=== PATIENT | male | born 1975 ===

== ENCOUNTER 2017-12-12 11:25 | Emergency (ER) | payer MEDICARE, OTHER ==
[2017-12-12 11:52] VITALS: BMI 33.5
[2017-12-12 12:11] LABS: BASO % 0.4 % (0.0-2.0); EOS # 0.1 K/uL (0.0-0.7); EOS % 1.5 % (0.0-4.0); HEMOGLOBIN 15.4 g/dL (12.0-18.0); LYMPH # 1.8 K/uL (1.0-4.3); LYMPH % 30.9 % (20.0-40.0); MEAN CELL VOLUME 85.4 fL (80.0-94.0); MEAN CORPUSCULAR HEMOGLOBIN 29.4 pg (27.0-31.0); MEAN CORPUSCULAR HGB CONC 34.4 g/dL (33.0-37.0); MEAN PLATELET VOLUME 7.8 fL (7.2-11.7); MONO # 0.7 K/uL (0.0-0.8); NEUT # 3.3 K/uL (1.8-7.0); NEUT % 56.2 % (50.0-75.0); NRBC % 0.1 % (0.0-2.0); RBC 5.23 Mil/uL (4.40-5.90); RED CELL DISTRIBUTION WIDTH 15.1 % (11.5-14.5); WHITE BLOOD COUNT 5.9 K/uL (4.8-10.8)
[2017-12-12 12:22] LABS: ACETAMINOPHEN < 10.0 ug/mL (10.0-30.0); SALICYLATE < 1.0 mg/dL 1
--- NOTE | 2017-12-12 12:22 | C.PDOC ---
History Of Present Illness 42 year old male, with PMHx of depression, presents to ED with complaints of feeling angry and stressed for the past few days. Pt states, "my nerves are acting up" for the past week. Note, pt refused to sit down during triage. Denies fever, or any other complaints. Time Seen by Provider: 12/12/17 11:34 Chief Complaint (Nursing): Psychiatric Evaluation History Per: Patient History/Exam Limitations: no limitations Onset/Duration Of Symptoms: Days Current Symptoms Are (Timing): Still Present Suicide/Self Injury Attempted (Context): None Modifying Factor(s): None Severity: None Pain Scale Rating Of: 0 Associated Symptoms: Anger. denies: Suicidal Thoughts, Suicidal Plan Involuntary Hold By: None Recent travel outside of the [place]: No Additional History Per: Patient Past Medical History Reviewed: Historical Data, Nursing Documentation, Vital Signs Vital Signs: Last Vital Signs Temp 98.7 F 12/12/17 14:49 Pulse 88 12/12/17 14:49 Resp 20 12/12/17 14:49 BP 124/78 12/12/17 14:49 Pulse Ox 98 12/12/17 14:49 - Medical History PMH: Anxiety, Asthma, Bipolar Disorder, Depression, Paranoia, Post Traumatic Stress Disorder Denies: Diabetes, Hepatitis, HIV, HTN, Chronic Kidney Disease, Seizures, Sexually Transmitted Disease - [facility] Procedures ESOPHAGOGASTRODUODENOSCOPY [EGD] W/CLOSED BIOPSY (01/26/14) Family History: States: Unknown Family Hx - Social History Hx Tobacco Use: No Hx Alcohol Use: No Hx Substance Use: No - Immunization History Hx Tetanus Toxoid Vaccination: No Hx Influenza Vaccination: No Hx Pneumococcal Vaccination: No Review Of Systems Except As Marked, All Systems Reviewed And Found Negative. Constitutional: Negative for: Fever, Chills Cardiovascular: Negative for: Chest Pain, Palpitations Respiratory: Negative for: Cough, Shortness of Breath Psych: Positive for: Other (angry, stressed) Physical Exam - Physical Exam Appears: Non-toxic, Agitated Skin: Normal Color, Warm, Dry Head: Atraumatic, Normacephalic Eye(s): bilateral: Normal Inspection Oral Mucosa: Moist Neck: Supple Cardiovascular: Rhythm Regular Respiratory: Normal Breath Sounds, No Rales, No Rhonchi, No Wheezing Extremity: Bilateral: Atraumatic, Normal ROM Neurological/Psych: Oriented x3, Normal Speech ED Course And Treatment - Laboratory Results Result Diagrams: 12/12/17 11:54 12/12/17 12:02 ECG: Interpreted By Me, Viewed By Me ECG Rhythm: Sinus Rhythm ECG Interpretation: No Acute Changes Rate From EC (bpm) O2 Sat by Pulse Oximetry: 99 (RA) Pulse Ox Interpretation: Normal Medical Decision Making Medical Decision Making: Plan: Blood work UA EKG CXR Pt is medically cleared. cleared by dwayne for dc. advise outpt fu with dr diaz. appt given Disposition - Disposition Disposition: HOME/ ROUTINE Disposition Time: 15:30 Condition: STABLE Additional Instructions: please follow up with your scheduled appointment with emily. return to er with worsening symptoms or concerns. Instructions: Depression (ED), Anxiety (ED), Suicide Prevention for Adults (DC) Forms: [employer] Connect (Maori) - Clinical Impression Clinical Impression: Anxiety - Scribe Statement The provider has reviewed the documentation as recorded by the Scribe Rios Charlton All medical record entries made by the Scribe were at my direction and personally dictated by me. I have reviewed the chart and agree that the record accurately reflects my personal performance of the history, physical exam, medical decision making, and the department course for this patient. I have also personally directed, reviewed, and agree with the discharge instructions and disposition.
[2017-12-12 12:25] LABS: ALB/GLOB RATIO 1.3 (1.0-2.1); ALBUMIN 4.1 g/dL (3.5-5.0); ALT/SGPT 45 U/L (21-72); AST/SGOT 34 U/L (17-59); BLOOD UREA NITROGEN 12 mg/dL (9-20); CALCIUM 7.9 mg/dl (8.6-10.4); GFR AFRICAN-AMERICAN > 60; GFR NON-AFRICAN AMERICAN > 60
--- NOTE | 2017-12-12 12:31 | RAD ---
PROCEDURE: CHEST RADIOGRAPH, 1 VIEW HISTORY: Detox/Psy COMPARISON: 12/01/2016. FINDINGS: LUNGS: The lungs are well inflated and clear. PLEURA: No pneumothorax or pleural fluid seen. CARDIOVASCULAR: Normal. OSSEOUS STRUCTURES: No significant abnormalities. VISUALIZED UPPER ABDOMEN: Normal. OTHER FINDINGS: None. IMPRESSION: No active pulmonary disease.
[2017-12-12 13:13] LABS: URINE BILIRUBIN NEGATIVE (NEGATIVE); URINE BLOOD NEGATIVE (NEGATIVE); URINE CLARITY Clear (Clear); URINE COLOR Yellow (YELLOW); URINE GLUCOSE (UA) NORMAL (Normal); URINE LEUKOCYTE ESTERASE NEG Leu/uL (Negative); URINE NITRATE NEGATIVE (NEGATIVE); URINE PROTEIN NEGATIVE (NEGATIVE); URINE UROBILINOGEN NORMAL mg/dL (0.2-1.0)
[2017-12-12 13:22] LABS: BARBITURATES, UR NEGATIVE (NEGATIVE); BENZODIAZEPINES, UR NEGATIVE (NEGATIVE); OPIATES, UR NEGATIVE (NEGATIVE); PHENCYCLIDINE, UR NEGATIVE (NEGATIVE)
[2017-12-12 14:49] VITALS: BP 124/78; PULSE 88; RESP 20; TEMP 98.7
[2017-12-12 15:34] VITALS: O2SAT 99
--- NOTE | 2017-12-15 09:15 | CARD ---
APPROVED REPORT EKG Measurement Heart [id number] DC 150P42 [id number] <Conclusion> Normal sinus rhythm with sinus arrhythmia Normal ECG
== END 2017-12-12 15:37 | disposition home or self-care (01) ==
LOC: C.ER 11:25
DX: F41.9 Anxiety disorder, unspecified (principal)
CPT/HCPCS: 36415; 71045; 80053; 81001; 85025; 99283; G0480

== ENCOUNTER 2018-05-20 06:02 | Emergency (ER) | payer MEDICARE, OTHER ==
[2018-05-20 06:02] VITALS: BMI 33.5
[2018-05-20] MEDS ORDERED: Albuterol-Ipratrop 3 mg / 0.5 (3 ml) UD INH STA ×3 (06:12→06:13)
[2018-05-20 06:13] VITALS: TEMP 98.2
[2018-05-20] MEDS ORDERED: Sodium Chloride 0.9% 1,000 ML IV ONE (06:13)
--- NOTE | 2018-05-20 06:14 | C.PDOC ---
History Of Present Illness <Veto Escamilla - Last Filed: 05/20/18 07:07> <Maty Romero - Last Filed: 05/20/18 09:19> 42 year old male with a Hx of asthma presents to the ER with a complaint of SOB and dry cough since yesterday. Denies fever. (Veto Escamlila Cely) History Per: Patient History/Exam Limitations: no limitations Onset/Duration Of Symptoms: Days Current Symptoms Are (Timing): Still Present Initiating Event: Other (Not known) Current Respiratory Medications: See Home Med List Associated Symptoms: denies: Fever Recent travel outside of the [place]: No <Veto Escamilla - Last Filed: 05/20/18 07:07> <Maty Romero - Last Filed: 05/20/18 09:19> Chief Complaint (Nursing): Shortness Of Breath Past Medical History Reviewed: Historical Data, Nursing Documentation, Vital Signs - Medical History PMH: Anxiety, Asthma, Bipolar Disorder, Depression, HTN, Paranoia, Post Traumatic Stress Disorder Family History: States: Unknown Family Hx - Social History Hx Tobacco Use: No Hx Alcohol Use: Yes Hx Substance Use: Yes - Immunization History Hx Tetanus Toxoid Vaccination: No Hx Influenza Vaccination: No Hx Pneumococcal Vaccination: No <Veto Escamilla - Last Filed: 05/20/18 07:07> Vital Signs: Last Vital Signs Temp 98.2 F 05/20/18 06:07 Pulse 103 H 05/20/18 07:11 Resp 17 05/20/18 07:11 BP 142/86 05/20/18 07:11 Pulse Ox 93 L 05/20/18 07:17 - [facility] Procedures ESOPHAGOGASTRODUODENOSCOPY [EGD] W/CLOSED BIOPSY (01/26/14) Review Of Systems Constitutional: Negative for: Fever, Chills ENT: Negative for: Throat Pain, Throat Swelling Cardiovascular: Negative for: Chest Pain, Palpitations Respiratory: Positive for: Cough, Shortness of Breath. Negative for: Sputum Gastrointestinal: Negative for: Nausea, Vomiting, Abdominal Pain Skin: Negative for: Rash <Veto Escamilla - Last Filed: 05/20/18 07:07> Physical Exam - Physical Exam Appears: Non-toxic, Other (Dyspneic) Skin: Normal Color, Warm, Dry Head: Atraumatic, Normacephalic Eye(s): bilateral: Normal Inspection Oral Mucosa: Moist Throat: Normal, No Other (Swelling) Neck: Normal, Supple Chest: Symmetrical, No Tenderness Cardiovascular: Rhythm Regular Respiratory: No Rales, Rhonchi (Expiratory), Wheezing (Expiratory) Gastrointestinal/Abdominal: Soft, No Tenderness Neurological/Psych: Oriented x3, Normal Speech <Veto Escamilla - Last Filed: 05/20/18 07:07> ED Course And Treatment - Laboratory Results Result Diagrams: 05/20/18 06:28 05/20/18 06:28 ECG: Interpreted By Me, Viewed By Me ECG Rhythm: Sinus Rhythm ECG Interpretation: Normal, No Acute Changes Interpretation Of ECG: NSR, normal tracings Rate From EC O2 Sat by Pulse Oximetry: 97 (Room air) Pulse Ox Interpretation: Normal - Radiology CXR: Interpreted by Me, Viewed By Me CXR Interpretation: Yes: No Acute Disease, Other (normal chest film). No: Infiltrates Progress Note: EKG, blood work, and CXR ordered. Solumedrol, IV fluids, and duoneb administered. <Veto Escamilla - Last Filed: 05/20/18 07:07> - Laboratory Results Result Diagrams: 05/20/18 06:28 05/20/18 06:28 <Maty Romero - Last Filed: 05/20/18 09:19> Progress <Veto Escamilla - Last Filed: 05/20/18 07:07> <Maty Romero - Last Filed: 05/20/18 09:19> - Re-Evaluation Re-evaluation Note: 05/20/18 07:15 SP NEB X 3, SOLUMEDROL STATES FEELS BETTER THAN INITIAL BUT STILL SOB. MILD RESP DIST SPEAKING FULL SENTENCES B/L EXP WHEEZE NO RETRACTIONS. 100% 2L. CONT ED OBS 05/20/18 09:14 IMPROVED COMPARED TO PRIOR EVAL. AMBUL WO DIFF. REQUESTING DC. VSS. (Maty Romero) Disposition - Disposition Disposition Time: 07:00 <Veto Escamilla - Last Filed: 05/20/18 07:07> Counseled Patient/Family Regarding: Studies Performed, Diagnosis, Need For Followup, Rx Given - Disposition Disposition Time: 09:15 <Maty Romero - Last Filed: 05/20/18 09:19> - Disposition Referrals: [facility] [Outside] [facility] [Outside] [facility] [Other] Disposition: HOME/ ROUTINE Condition: IMPROVED Prescriptions: Albuterol HFA [Ventolin HFA 90 mcg/actuation (8 g)] 1 puff IH Q4 #1 inhaler Benzonatate [Tessalon Perles] 200 mg PO TID PRN #15 sgl PRN Reason: Cough Ibuprofen [Motrin] 600 mg PO Q6 #30 tab predniSONE [Prednisone] 60 mg PO DAILY #12 tab Instructions: Asthma, Adult (DC) Forms: [employer] Connect (Andorran), Work Excuse - Clinical Impression Clinical Impression: Asthma exacerbation - Scribe Statement The provider has reviewed the documentation as recorded by the Scribe <Veto Escamilla - Last Filed: 05/20/18 07:07> <Maty Romero - Last Filed: 05/20/18 09:19> - Scribe Statement Guilherme Dey All medical record entries made by the Scribe were at my direction and personally dictated by me. I have reviewed the chart and agree that the record accurately reflects my personal performance of the history, physical exam, medical decision making, and the department course for this patient. I have also personally directed, reviewed, and agree with the discharge instructions and disposition. (Veto Escamilla)
[2018-05-20] MEDS ORDERED: Albuterol-Ipratrop 3 mg / 0.5 (3 ml) UD ONE ×2 (06:22→06:50)
[2018-05-20 06:34] LABS: BASO % 0.2 % (0.0-2.0); EOS # 0.6 K/uL (0.0-0.7); EOS % 5.7 % (0.0-4.0); HEMOGLOBIN 15.5 g/dL (12.0-18.0); LYMPH # 1.7 K/uL (1.0-4.3); LYMPH % 15.8 % (20.0-40.0); MEAN CELL VOLUME 87.9 fL (80.0-94.0); MEAN CORPUSCULAR HGB CONC 34.1 g/dL (33.0-37.0); MEAN PLATELET VOLUME 7.7 fL (7.2-11.7); MONO % 9.2 % (0.0-10.0); NEUT # 7.4 K/uL (1.8-7.0); NEUT % 69.1 % (50.0-75.0); RBC 5.16 Mil/uL (4.40-5.90); WHITE BLOOD COUNT 10.7 K/uL (4.8-10.8)
[2018-05-20 06:46] LABS: ALB/GLOB RATIO 1.4 (1.0-2.1); ALBUMIN 4.5 g/dL (3.5-5.0); ALT/SGPT 46 U/L (21-72); AST/SGOT 31 U/L (17-59); BLOOD UREA NITROGEN 6 mg/dL (9-20); CALCIUM 9.3 mg/dl (8.6-10.4); GFR AFRICAN-AMERICAN > 60; GFR NON-AFRICAN AMERICAN > 60
[2018-05-20] MEDS ORDERED: Albuterol 0.083% Inhal Sol (2.5 mg/3 mL) UD INH ONE (09:09)
--- NOTE | 2018-05-20 09:09 | RAD ---
PROCEDURE: CHEST RADIOGRAPH, 1 VIEW HISTORY: SOB COMPARISON: Comparison made with chest radiograph 12/12/2017. FINDINGS: LUNGS: Clear. PLEURA: No pneumothorax or pleural fluid seen. CARDIOVASCULAR: Normal. OSSEOUS STRUCTURES: No significant abnormalities. VISUALIZED UPPER ABDOMEN: Normal. OTHER FINDINGS: None. IMPRESSION: No active disease.
[2018-05-20 09:15] VITALS: BP 129/88; PULSE 79; RESP 16; O2SAT 94
[2018-05-20] MEDS ORDERED: Albuterol 0.083% Inhal Sol (2.5 mg/3 mL) UD ONE (09:15)
--- NOTE | 2018-05-20 22:59 | CARD ---
APPROVED REPORT EKG Measurement Heart [id number] MA 146P68 [id number] <Conclusion> Normal sinus rhythm Normal ECG
== END 2018-05-20 09:27 | disposition home or self-care (01) ==
LOC: C.ER 06:02
DX: J45.901 Unspecified asthma with (acute) exacerbation (principal)
CPT/HCPCS: 71045; 80053; 85025; 93005; 94640; 96374; 99285; J2930; J7030

== ENCOUNTER 2018-06-18 12:38 | Emergency (ER) | payer MEDICARE, OTHER ==
[2018-06-18 12:38] VITALS: BMI 33.5
--- NOTE | 2018-06-18 13:12 | C.PDOC ---
History Of Present Illness <Susan Toussaint - Last Filed: 06/18/18 18:11> <Tani Aponte M - Last Filed: 06/19/18 00:32> <Nickie Conti - Last Filed: 06/19/18 04:39> <Payal Cortes - Last Filed: 06/19/18 15:37> 43 yo male w/PMHx of psych ds come in accaompnied by family member, reports digested 12 Clonazepam pills since today AM. Pt admits, medication prescribed by his spychiatrist , takes for sleep. Pt sts, was unable to sleep for past few days " fighting with my , taking more than should medication". AT present time, pt appears combative, fighting with security, family member. FYI: Pt's is a patient of [facility] ED at present time, evaluated for benzo overdose, suicidal attempt. (Susan Toussaint) History Per: Patient, Family <Susan Toussaint - Last Filed: 06/18/18 18:11> <Tani Aponte M - Last Filed: 06/19/18 00:32> <Nickie Conti - Last Filed: 06/19/18 04:39> <Payal Cortes - Last Filed: 06/19/18 15:37> Time Seen by Provider: 06/18/18 12:42 Chief Complaint (Nursing): Psychiatric Evaluation Past Medical History Reviewed: Historical Data, Nursing Documentation, Vital Signs - Medical History PMH: Anxiety, Asthma, Bipolar Disorder, Depression, HTN, Paranoia, Post Traumatic Stress Disorder Denies: Diabetes, Hepatitis, HIV, Chronic Kidney Disease, Seizures, Sexually Transmitted Disease Family History: States: Unknown Family Hx - Social History Hx Tobacco Use: No Hx Alcohol Use: Yes Hx Substance Use: Yes - Immunization History Hx Tetanus Toxoid Vaccination: No Hx Influenza Vaccination: No Hx Pneumococcal Vaccination: No <Susan Toussaint - Last Filed: 06/18/18 18:11> Vital Signs: Last Vital Signs Temp 97.4 F L 06/19/18 15:13 Pulse 82 06/19/18 15:13 Resp 18 06/19/18 15:13 BP 104/72 06/19/18 15:13 Pulse Ox 98 07/20/18 15:13 - [facility] Procedures ESOPHAGOGASTRODUODENOSCOPY [EGD] W/CLOSED BIOPSY (01/26/14) Review Of Systems Except As Marked, All Systems Reviewed And Found Negative. Constitutional: Negative for: Fever, Chills Cardiovascular: Negative for: Chest Pain Neurological: Negative for: Weakness, Numbness Psych: Positive for: Anxiety, Depression, Psychosis <Susan Toussaint - Last Filed: 06/18/18 18:11> Physical Exam - Physical Exam Appears: Non-toxic, Combative, Agitated Skin: Normal Color, Warm, Dry, No Rash, No Ecchymosis Head: Normacephalic Eye(s): bilateral: PERRL Nose: No Flaring, No Discharge Oral Mucosa: Moist, No Drooling Throat: No Erythema, No Exudate Neck: Trachea Midline, No Midline Cervical Tenderness, No Paracervical Tenderness, No Step Off Deformity, Supple Cardiovascular: Rhythm Regular, No Murmur, No JVD Respiratory: No Decreased Breath Sounds, No Accessory Muscle Use, No Stridor, No Wheezing Gastrointestinal/Abdominal: Soft, No Tenderness, No Distention, No Guarding Back: No CVA Tenderness Extremity: Normal ROM, No Deformity, No Swelling Neurological/Psych: Oriented x3, Normal Speech <Susan Toussaint - Last Filed: 06/18/18 18:11> ED Course And Treatment - Laboratory Results Result Diagrams: 06/18/18 13:27 06/18/18 13:27 ECG: Interpreted By Me, Viewed By Me ECG Rhythm: Sinus Rhythm Interpretation Of ECG: SR@95/min, NAD, no acute T wave or ST-T changes. O2 Sat by Pulse Oximetry: 97 Pulse Ox Interpretation: Normal Progress Note: Case discussed with Poison Control Saroj, blood wor, EKG review. recommend OBS until fully awaken, hydration, sx tx. Pt was OBS in ED for 5 hrs and remained stable. Easily arousable to verbal stimuli. Afebrile, hemodynamicalys table. non-toxic. Neuorlogicaly intact. Pt is medically cleared for PES evaluation. At 18:10, pt was seen by PES, transfer to psych floor of [facility] arranged, since his is admitted to [facility] ED now. <Susan Toussaint - Last Filed: 06/18/18 18:11> - Laboratory Results Result Diagrams: 06/18/18 13:27 06/18/18 13:27 <Tani Aponte - Last Filed: 06/19/18 00:32> - Laboratory Results Result Diagrams: 06/18/18 13:27 06/18/18 13:27 Pulse Ox Interpretation: Normal Progress Note: Pt was accepted by [facility] . Awaiting bed availability <Nickie Conti - Last Filed: 06/19/18 04:39> - Laboratory Results Result Diagrams: 06/18/18 13:27 06/18/18 13:27 <Andi Cortesia A - Last Filed: 06/19/18 15:37> Medical Decision Making <Susan Toussaint - Last Filed: 06/18/18 18:11> <Tani Aponte - Last Filed: 06/19/18 00:32> <Nickie Conti - Last Filed: 06/19/18 04:39> <Payal Cortes A - Last Filed: 06/19/18 15:37> Medical Decision Making: patient pending evaluation by [facility] case s/o to Dr. Conti at 0100. (Tani Aponte) Disposition - Disposition Disposition Time: 18:13 <Susan Toussaint - Last Filed: 06/18/18 18:11> - Disposition Disposition Time: 01:00 <Tani Aponte - Last Filed: 06/19/18 00:32> - Disposition Disposition Time: 07:00 <Nickie Conti - Last Filed: 06/19/18 04:39> <Payal Cortes A - Last Filed: 06/19/18 15:37> - Disposition Disposition: OTHER INSTITUTION Condition: STABLE Forms: [facility] (Divehi) - Clinical Impression Clinical Impression: Depression, Suicide attempt Physician Patient Turnover Patient Signed Over To: Nickie Conti <Tani Aponte - Last Filed: 06/19/18 00:32> Patient Signed Over To: SophiaAndi hernandezia A Handoff Comments: pending [facility] bed availability <Nickie Conti - Last Filed: 06/19/18 04:39> Addendum <Susan Toussaint - Last Filed: 06/18/18 18:11> <Payal Cortes - Last Filed: 06/19/18 15:37> Addendum: 06/19/18 15:37 Patient has been calm and cooperative. Accepted to [facility] psychiatric unit - pending transfer. (Payal Cortes)
[2018-06-18 13:33] LABS: BASO % 0.4 % (0.0-2.0); EOS # 0.1 K/uL (0.0-0.7); EOS % 0.7 % (0.0-4.0); HEMOGLOBIN 14.9 g/dL (12.0-18.0); LYMPH # 1.4 K/uL (1.0-4.3); MEAN CELL VOLUME 85.4 fL (80.0-94.0); MEAN CORPUSCULAR HEMOGLOBIN 29.7 pg (27.0-31.0); MEAN CORPUSCULAR HGB CONC 34.8 g/dL (33.0-37.0); MEAN PLATELET VOLUME 7.6 fL (7.2-11.7); MONO % 10.4 % (0.0-10.0); NEUT # 7.3 K/uL (1.8-7.0); NEUT % 74.5 % (50.0-75.0); RBC 5.02 Mil/uL (4.40-5.90); RED CELL DISTRIBUTION WIDTH 13.9 % (11.5-14.5); WHITE BLOOD COUNT 9.8 K/uL (4.8-10.8)
[2018-06-18 13:54] LABS: ACETAMINOPHEN < 10.0 ug/mL (10.0-30.0); SALICYLATE < 1.0 mg/dL 1
[2018-06-18 13:55] LABS: ALB/GLOB RATIO 1.4 (1.0-2.1); ALBUMIN 4.4 g/dL (3.5-5.0); ALT/SGPT 36 U/L (21-72); AST/SGOT 31 U/L (17-59); BLOOD UREA NITROGEN 12 mg/dL (9-20); CALCIUM 9.2 mg/dl (8.6-10.4); GFR AFRICAN-AMERICAN > 60; GFR NON-AFRICAN AMERICAN > 60
[2018-06-18] MEDS ORDERED: Sodium Chloride 0.9% 1,000 ML IV ONE (14:17)
--- NOTE | 2018-06-18 14:37 | RAD ---
Date of service: 06/18/2018 HISTORY: overdose COMPARISON: Comparison chest 05/20/2018 FINDINGS: LUNGS: No active pulmonary disease. PLEURA: No significant pleural effusion identified, no pneumothorax apparent. CARDIOVASCULAR: Normal. OSSEOUS STRUCTURES: No significant abnormalities. VISUALIZED UPPER ABDOMEN: Normal. OTHER FINDINGS: None. IMPRESSION: No active disease.
[2018-06-18 14:41] LABS: URINE BILIRUBIN NEGATIVE (NEGATIVE); URINE BLOOD NEGATIVE (NEGATIVE); URINE CLARITY Clear (Clear); URINE COLOR Straw (YELLOW); URINE GLUCOSE (UA) NORMAL (Normal); URINE LEUKOCYTE ESTERASE NEG Leu/uL (Negative); URINE PROTEIN NEGATIVE (NEGATIVE); URINE UROBILINOGEN NORMAL mg/dL (0.2-1.0)
[2018-06-18 15:10] LABS: BARBITURATES, UR NEGATIVE (NEGATIVE); BENZODIAZEPINES, UR NEGATIVE (NEGATIVE); OPIATES, UR NEGATIVE (NEGATIVE); PHENCYCLIDINE, UR NEGATIVE (NEGATIVE)
[2018-06-19] MEDS ORDERED: Albuterol-Ipratrop 3 mg / 0.5 (3 ml) UD ONE (03:43)
[2018-06-19] MEDS ORDERED: Albuterol-Ipratrop 3 mg / 0.5 (3 ml) UD INH ONE (03:43)
--- NOTE | 2018-06-19 13:04 | PCM.PSYCH ---
Initial Psychiatric Evaluation - Initial Psychiatric Evaluation Type of Admission: Involuntary Chief Complaint (in patient's own words): "I'm fine" History of Present Illness and Precipitating Events: Pt is seen in ER, chart reviewed, case discussed. Consult was requested b/c of his suicide attempt. Pt is a 43-year-old male who is but , on disability and has 3 adult children. Pt states that he ingested 12 pills of Clonazepam following an argument with his last night. He did not sleep for the past 2 days leading up to the event. He said it was a suicide attempt but hen he changed his story to claim it was not. He has never attempted suicide in the past. He admits to some marijuana, a few cigarettes a day, and occasional alcohol use. However, he is also positive for cocaine use. He said he has been regularly arguing with his recently because he accuses her of lying to him and cheating him. "I could not stand the lying anymore," he claims and that's why he filed divorce recently and that his too attempted suicide after their fight. She denies cheating him with his friend. As per patient's outpt psychiatrist, Dr. Barrera, the pt had stopped his meds not too long ago but also got an Invega shot b/c of that. The pt currently denies feeling suicidal but remains depressed, periodically agitated and very paranoid. Past Psych: hospitalized in psychiatric unit 2x in past. Dx was major depression but likelyschizoaffective d/o Family Hx: none Past Medical: Asthma, head trauma years ago which may have started these psych issues. Current Medications: Active Medications Generic Name Dose Route Start Last Admin Trade Name Freq PRN Reason Stop Dose Admin Benztropine Mesylate 1 mg 06/19/18 18:00 Cogentin PO BID MICKIE Clonazepam 0.5 mg 06/19/18 14:00 Klonopin PO TID MICKIE Haloperidol 5 mg 06/19/18 18:00 Haldol PO BID MICKIE Haloperidol Lactate 5 mg 06/19/18 13:02 Haldol IM Q4H PRN Agitation Lorazepam 1 mg 06/19/18 13:02 Ativan PO Q4H PRN severe anxiety Mirtazapine 15 mg 06/19/18 22:00 Remeron PO HS MICKIE Past Psychiatric History - Past Psychiatric History Previous Treatment History: Inpatient Pertinent Medical Hx (Current Medical&Sleep Prob, Allergies): Allergies Allergy/AdvReac Type Severity Reaction Status Date / Time No Known Allergies Allergy Verified 05/20/18 06:10 Albuterol 0.083% [Albuterol Sulfate 3 Ml] 3 ml IH PRN PRN 11/30/16 Albuterol HFA [Ventolin HFA 90 mcg/actuation (8 g)] 1 puff IH PRN PRN 11/30/16 Clonazepam [Klonopin] 1 mg PO PRN PRN 11/30/16 Haloperidol [Haldol] 5 mg PO DAILY 11/30/16 PARoxetine [Paxil] 30 mg PO DAILY 11/30/16 Albuterol HFA [Ventolin HFA 90 mcg/actuation (8 g)] 1 puff IH Q4 #1 inhaler Benzonatate [Tessalon Perles] 200 mg PO TID PRN #15 sgl 05/20/18 Ibuprofen [Motrin] 600 mg PO Q6 #30 tab 05/20/18 predniSONE [Prednisone] 60 mg PO DAILY #12 tab 05/20/18 Review of Systems - Neurological Neurological: UNREMARKABLE - Psychiatric Psychiatric: Abnormal Sleep Pattern, Depression, Difficulty Concentrating, Irritability, Mood Swings, Paranoia, Suicidal Ideation (denies now). absent: Hallucinations Mental Status Examination - Personal Presentation Personal Presentation: Looks stated age - Affect Affect: Constricted - Motor Activity Motor Activity: Psychomotor Agitation - Reliability in Providing Information Reliability in Providing Information: Poor, due to alteration in thoughts - Speech Speech: Disorganized - Mood Mood: Depressed, Anxious, Other (irate) - Formal Thought Process Formal Thought Process: Delusions, Paranoia - Cognitive Functions Orientation: Person, Place, Situation, Time Sensorium: Alert Attention/Concentration: Easily distracted Abstract Thinking: [place] Estimate of Intelligence: Average Judgement: Intact, as evidence by: Insight regarding need for hospitalization Memory: Recent intact, as evidence by: Ability to recall events of the day, Remote impaired as evidenced by: Inability to recall historical events - Risk Risk: Diminished functioning - Strength & Assets Inventory Strength & Assets Inventory: Cooperative - Limitations Limitations: Other (family problems) DSM 5 DX - DSM 5 DSM 5 Diagnosis: Schizoaffective d/o- depressed Cocaine use - moderate cannabis use - moderate r/o 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 He is refusing voluntary [employer] Qualified PC'ed him He will also get amy cardenas and depakote Support and psychoed 33 min
[2018-06-19 15:14] VITALS: TEMP 97.4; O2SAT 98
[2018-06-19] MEDS ORDERED: Divalproex 500 mg DR Tab PO ONE (17:47)
[2018-06-19] MEDS ORDERED: Divalproex 500 mg DR Tab PO SCH (18:00)
[2018-06-19 18:57] VITALS: BP 121/84; PULSE 92; RESP 16
== END 2018-06-19 19:31 | disposition designated cancer center or children's hospital (05) ==
LOC: C.ER 12:38
DX: F32.9 Major depressive disorder, single episode, unspecified (principal); T14.91XA Suicide attempt, initial encounter; X83.8XXA Intentional self-harm by other specified means, initial encounter; Y92.9 Unspecified place or not applicable; I10 Essential (primary) hypertension; F17.210 Nicotine dependence, cigarettes, uncomplicated
CPT/HCPCS: 71045; 80053; 81001; 85025; 96360; 96372; 99285; G0480; J1630; J2060; J7030